=== PATIENT | male | born 1935 | race Caucasian/White ===

== ENCOUNTER 2016-11-14 19:48 | Emergency (ER) | payer OTHER ==
[2016-11-14 19:58] VITALS: BP 182/80; PULSE 81; TEMP 97.9; BMI 26.2
--- NOTE | 2016-11-14 21:24 | PDOC ---
History of Present Illness - General Chief Complaint: Nasal Bleeding Stated Complaint: NASAL BLEEDING Time Seen by Provider: 11/14/16 21:08 History Source: Patient Exam Limitations: No Limitations - History of Present Illness Initial Comments: 11/14/16 21:19 Chief complaint: Nosebleed Patient is an 81-year-old male with a history of hypertension, not on any antiplatelet or anticoagulation who states that he was cleaning the left side of his nose, picked a scab and it started bleeding. He states this usually stops on its own but he was having some issues so he came to the ER. Feels well , no other complaints or issues. Not bleeding now GENERAL/CONSTITUTIONAL: No fever, weakness. dizziness HEAD, EYES, EARS, NOSE AND THROAT: No change in vision. No ear pain or discharge. No sore throat. + Nosebleed CARDIOVASCULAR: No chest pain RESPIRATORY: No shortness of breath or cough GASTROINTESTINAL: No pain, nausea, vomiting, diarrhea or constipation GENITOURINARY: No dysuria MUSCULOSKELETAL: No neck or back pain SKIN: No rash NEUROLOGIC: No headache, vertigo, loss of consciousness, or loss of sensation. GENERAL: The patient is awake, alert, and fully oriented, in no acute distress. HEAD: Normal with no signs of trauma. EYES: Pupils equal, round and reactive to light, sclera anicteric, conjunctiva clear. ENT: pharynx: no erythema, no exudate, uvula midline, nares right, normal exam, left with no active bleeding or site of injury NECK: supple CHEST: clear, nontender, rr EXTREMITIes: Full range of motion, tender NEUROLOGICAL: Normal speech, normal gait. SKIN: Warm, Dry Past History - Past Medical History Allergies/Adverse Reactions: Allergies Allergy/AdvReac Type Severity Reaction Status Date / Time No Known Allergies Allergy Verified 11/14/16 19:55 Home Medications: Ambulatory Orders Lisinopril [Prinivil -] 40 mg PO DAILY 03/25/13 Metoprolol Tartrate [Lopressor -] 100 mg PO BID 03/25/13 Anemia: No Asthma: No Cancer: Yes ([facility] 2008) Cardiac Disorders: No CVA: No CHF: No Dementia: No Diabetes: No GI Disorders: No Disorders: No HTN: Yes Hypercholesterolemia: No Liver Disease: No Suicide Attempt (Hx): Yes Seizures: No Thyroid Disease: No - Surgical History Abdominal Surgery: Yes ([facility] [place] 2009) Appendectomy: No Cardiac Surgery: No Cholecystectomy: No Lung Surgery: No Neurologic Surgery: No Orthopedic Surgery: No - Psycho/Social/Smoking Cessation Hx Anxiety: No Suicidal Ideation: No Smoking Status: No Smoking History: Never smoked Have you smoked in the past 12 months: No Number of Cigarettes Smoked Daily: 0 If you are a former smoker, when did you quit?: 1967 Information on smoking cessation initiated: No Hx Alcohol Use: No Drug/Substance Use Hx: No Substance Use Type: None Hx Substance Use Treatment: No *Physical Exam - Vital Signs Last Vital Signs Temp Pulse Resp BP Pulse Ox 97.9 F 81 18 182/80 99 11/14/16 19:55 11/14/16 19:55 11/14/16 19:55 11/14/16 19:55 11/14/16 19:55 *DC/Admit/Observation/Transfer Diagnosis at time of Disposition: Epistaxis - Discharge Dispostion Disposition: HOME Condition at time of disposition: Stable Admit: No - Referrals Referrals: Radha Mcguire MD [Staff Physician] - - Patient Instructions Printed Discharge Instructions: DI for Nosebleed Additional Instructions: Do not put anything in your nose, and do not pick at the scabs, this will cause nose to bleed If it starts bleeding again, below it once, put your head forward and pinch nose for a good 20-30 minutes, do not put the tissue inside nose, once you take this out it will start to bleed again I recommended that you see an ENT doctor if this continues to be a problem, you want to see your own doctor so follow-up with your doctor this week. Return to the ER if worse
== END 2016-11-14 21:27 | disposition home or self-care (01) ==
LOC: JERFT 19:48
DX: R04.0 Epistaxis (principal); I10 Essential (primary) hypertension
CPT/HCPCS: 99281-25

== ENCOUNTER 2020-12-07 19:05 | Emergency (ER) | payer OTHER ==
[2020-12-07 19:10] VITALS: BP 142/89; PULSE 68; TEMP 98.2; BMI 20.5
== END 2020-12-07 20:33 | disposition home or self-care (01) ==
LOC: JER 19:05
DX: M27.61 Osseointegration failure of dental implant (principal)
CPT/HCPCS: 99281-25

== ENCOUNTER 2020-12-09 06:04 | Emergency (ER) | payer OTHER ==
[2020-12-09 06:17] VITALS: TEMP 98.6; BMI 19.1
[2020-12-09 09:50] VITALS: BP 148/82; PULSE 78
== END 2020-12-09 09:51 | disposition home or self-care (01) ==
LOC: JER 06:04
DX: L76.22 Postprocedural hemorrhage of skin and subcutaneous tissue following other procedure (principal)
CPT/HCPCS: 99281-25

== ENCOUNTER 2020-12-09 12:22 | Emergency (ER) | payer OTHER ==
[2020-12-09 12:27] VITALS: BP 188/65; PULSE 75; TEMP 97.8; BMI 19.1
== END 2020-12-09 12:47 | disposition home or self-care (01) ==
LOC: JERFT 12:22
DX: L76.22 Postprocedural hemorrhage of skin and subcutaneous tissue following other procedure (principal)
CPT/HCPCS: 99281-25

== ENCOUNTER 2021-01-17 16:32 | Emergency (ER) | payer OTHER ==
[2021-01-17 16:43] VITALS: PULSE 70; TEMP 98; BMI 19.1
[2021-01-17] MEDS ORDERED: ACETAMINOPHEN 1000 MG/100 ML VIAL (NON FORMULARY) IVPB ONE (18:10)
[2021-01-17] MEDS ORDERED: MAG HYDROX/AL HYDROX/SIMETH 30 ML UNIT-DOSE CUP PO ONE (18:10)
[2021-01-17] MEDS ORDERED: MAG HYDROX/AL HYDROX/SIMETH 30 ML UNIT-DOSE CUP ONE ×2 (18:19→18:20)
[2021-01-17] MEDS ORDERED: ACETAMINOPHEN INJECTION 100 ML IVPB ONE (18:19)
[2021-01-17 18:24] VITALS: BP 175/85
[2021-01-17 19:27] LABS: BASO % 0.8 % (0-2.0); EOS % 0.5 % (0-4.5); HEMATOCRIT 33.7 % (35.4-49); HEMOGLOBIN 11.2 GM/dL (11.7-16.9); LYMPH % 8.1 % (8-40); MCH 25.4 pg (25.7-33.7); MCHC 33.3 g/dl (32.0-35.9); MEAN CELL VOLUME 76.2 fl (80-96); MONO % 6.6 % (3.8-10.2); PLATELET COUNT 215 10^3/uL (134-434); RBC 4.42 M/mm3 (4.00-5.60); RDW 16.2 % (11.9-15.9); WHITE BLOOD COUNT 7.5 K/mm3 (4.0-10.0)
[2021-01-17 19:44] LABS: CHLORIDE 101 mmol/L (98-107); SODIUM 138 mmol/L (136-145)
[2021-01-17 19:47] LABS: ALBUMIN 3.6 g/dl (3.4-5.0); ANION GAP 5 MMOL/L (8-16); BLOOD UREA NITROGEN 22.4 mg/dL (7-18); CALCIUM 8.3 mg/dL (8.5-10.1); CO2 31 mmol/L (21-32); GLUCOSE,RANDOM 95 mg/dL (74-106)
[2021-01-17 19:50] LABS: CREATININE 1.1 mg/dL (0.55-1.3); SGOT/AST 18 U/L (15-37); SGPT/ALT 16 U/L (13-61)
[2021-01-17 19:52] LABS: BILIRUBIN,TOTAL 0.4 mg/dL (0.2-1); TOT PROT 7.5 g/dl (6.4-8.2)
[2021-01-17 19:53] LABS: ALK PHOS 65 U/L (45-117)
== END 2021-01-17 21:41 | disposition home or self-care (01) ==
LOC: JER 16:32
PROC: 3E0333Z Introduction of Anti-inflammatory into Peripheral Vein, Percutaneous Approach (ICD-10-PCS; principal; 2021-01-17)
DX: R14.0 Abdominal distension (gaseous) (principal); M25.511 Pain in right shoulder; M25.512 Pain in left shoulder
CPT/HCPCS: 36415; 71045-TC-FY; 80053; 82550; 84484; 85025; 93005; 93010; 99285-25; J0131

== ENCOUNTER 2021-02-20 17:58 | Inpatient (IN) | payer OTHER ==
[2021-02-20 21:15] LABS: BASO % 2.2 % (0-2.0); EOS % 0.6 % (0-4.5); HEMATOCRIT 30.3 % (35.4-49); HEMOGLOBIN 10.1 GM/dL (11.7-16.9); LYMPH % 11.3 % (8-40); MCH 24.4 pg (25.7-33.7); MCHC 33.4 g/dl (32.0-35.9); MEAN PLT VOLUME 6.8 fl (7.5-11.1); MONO % 7.2 % (3.8-10.2); NEUT % 78.7 % (42.8-82.8); PLATELET COUNT 328 10^3/uL (134-434); RBC 4.15 M/mm3 (4.00-5.60); RDW 16.2 % (11.9-15.9); WHITE BLOOD COUNT 6.8 K/mm3 (4.0-10.0)
[2021-02-20 21:32] LABS: CHLORIDE 102 mmol/L (98-107); SODIUM 135 mmol/L (136-145)
[2021-02-20 21:34] LABS: ANION GAP 6 MMOL/L (8-16); CALCIUM 8.3 mg/dL (8.5-10.1); CO2 26 mmol/L (21-32); GLUCOSE,RANDOM 74 mg/dL (74-106)
[2021-02-20 21:35] LABS: BLOOD UREA NITROGEN 17.9 mg/dL (7-18)
[2021-02-20 21:37] LABS: SGPT/ALT 11 U/L (13-61)
[2021-02-20 21:38] LABS: SGOT/AST 20 U/L (15-37)
[2021-02-20 21:39] LABS: BILIRUBIN,TOTAL 0.4 mg/dL (0.2-1); TOT PROT 7.3 g/dl (6.4-8.2)
[2021-02-20 21:40] LABS: ALK PHOS 66 U/L (45-117)
[2021-02-21] MEDS ORDERED: FUROSEMIDE 40 MG/4 ML INJECTABLE VIAL IVPUSH ONE (01:10)
[2021-02-21] MEDS ORDERED: hydrALAZINE HCL 50 MG TABLET (FP) PO ONE (01:28)
[2021-02-21] MEDS ORDERED: FUROSEMIDE 40 MG/4 ML INJECTABLE VIAL ONE (01:46)
[2021-02-21] MEDS ORDERED: hydrALAZINE HCL 25 MG TABLET (FP) ONE (01:46)
[2021-02-21 09:48] LABS: EPI CELLS 4 /uL (0-25.1); HYALINE CASTS 0 /uL (0-3.1); PH,URINE 7.5 (5.0-8.0); URINE APPEARANCE CLEAR; URINE BACTERIA 2 /uL (0-1359); URINE BILIRUBIN NEGATIVE (NEGATIVE); URINE COLOR YELLOW; URINE GLUCOSE (UA) NEGATIVE (NEGATIVE); URINE KETONE 1+ (NEGATIVE); URINE LEUK ESTERASE NEGATIVE (NEGATIVE); URINE NITRITE NEGATIVE (NEGATIVE); URINE PROTEIN 1+ (NEGATIVE); URINE RBC 37 /uL (0-23.9); URINE WBC 3 /uL (0-25.8)
[2021-02-21 17:39] VITALS: BMI 21.4
[2021-02-21] MEDS: METOPROLOL TARTRATE 50 MG TABLET (FP) PO SCH (21:46)
[2021-02-22 09:38] LABS: BASO % 1.1 % (0-2.0); EOS % 1.1 % (0-4.5); HEMATOCRIT 31.5 % (35.4-49); HEMOGLOBIN 10.4 GM/dL (11.7-16.9); LYMPH % 11.5 % (8-40); MCHC 32.9 g/dl (32.0-35.9); MEAN CELL VOLUME 72.7 fl (80-96); MEAN PLT VOLUME 7.1 fl (7.5-11.1); MONO % 8.3 % (3.8-10.2); PLATELET COUNT 338 10^3/uL (134-434); RBC 4.34 M/mm3 (4.00-5.60); RDW 15.8 % (11.9-15.9); WHITE BLOOD COUNT 6.3 K/mm3 (4.0-10.0)
[2021-02-22] MEDS: FUROSEMIDE 40 MG/4 ML INJECTABLE VIAL IVPUSH SCH (09:55)
[2021-02-22] MEDS: METOPROLOL TARTRATE 50 MG TABLET (FP) PO SCH ×2 (09:55→21:27)
[2021-02-22] MEDS: LISINOPRIL 20 MG TABLET PO SCH (09:55)
[2021-02-22 10:17] LABS: CALCIUM 8.5 mg/dL (8.5-10.1)
[2021-02-22 10:18] LABS: BLOOD UREA NITROGEN 21.5 mg/dL (7-18)
[2021-02-22 10:20] LABS: BILIRUBIN,TOTAL 0.5 mg/dL (0.2-1); TOT PROT 7.1 g/dl (6.4-8.2)
[2021-02-23 10:10] LABS: BLOOD UREA NITROGEN 28.1 mg/dL (7-18)
[2021-02-23 10:11] LABS: CREATININE 1.1 mg/dL (0.55-1.3)
[2021-02-23 10:14] LABS: CALCIUM 8.1 mg/dL (8.5-10.1)
[2021-02-23] MEDS: LISINOPRIL 20 MG TABLET PO SCH (10:37)
[2021-02-23] MEDS: FUROSEMIDE 40 MG/4 ML INJECTABLE VIAL IVPUSH SCH (10:37)
[2021-02-23] MEDS: METOPROLOL TARTRATE 50 MG TABLET (FP) PO SCH ×2 (10:37→21:13)
[2021-02-23] MEDS: HEPARIN NA (PORCINE) 5,000 UNITS/ML 1ML VIAL SQ SCH (21:12)
[2021-02-24] MEDS: HEPARIN NA (PORCINE) 5,000 UNITS/ML 1ML VIAL SQ SCH ×2 (09:55→21:23)
[2021-02-24] MEDS: FUROSEMIDE 40 MG/4 ML INJECTABLE VIAL IVPUSH SCH (09:55)
[2021-02-24] MEDS: LISINOPRIL 20 MG TABLET PO SCH (09:55)
[2021-02-24] MEDS: METOPROLOL TARTRATE 50 MG TABLET (FP) PO SCH ×2 (09:55→21:23)
[2021-02-24 10:29] LABS: CALCIUM 8.3 mg/dL (8.5-10.1)
[2021-02-24 10:30] LABS: BLOOD UREA NITROGEN 35.2 mg/dL (7-18)
[2021-02-24 10:39] LABS: CREATININE 1.4 mg/dL (0.55-1.3)
[2021-02-25 06:43] VITALS: BP 145/79; PULSE 71; TEMP 97.4
[2021-02-25 08:47] LABS: BLOOD UREA NITROGEN 39.8 mg/dL (7-18)
[2021-02-25 08:50] LABS: CREATININE 1.2 mg/dL (0.55-1.3)
[2021-02-25] MEDS: HEPARIN NA (PORCINE) 5,000 UNITS/ML 1ML VIAL SQ SCH (10:32)
[2021-02-25] MEDS: LISINOPRIL 20 MG TABLET PO SCH (10:32)
[2021-02-25] MEDS: METOPROLOL TARTRATE 50 MG TABLET (FP) PO SCH (10:32)
[2021-02-25] MEDS: FUROSEMIDE 40 MG/4 ML INJECTABLE VIAL IVPUSH SCH (10:33)
== END 2021-02-25 14:13 | disposition home or self-care (01) | DRG 292 ==
LOC: JER 17:58 → JERBED 02-21 01:50 → J8W 02-21 16:39
PROVIDERS: ADMIT Internal Medicine; ATTEND Internal Medicine
DX: I11.0 Hypertensive heart disease with heart failure (principal); I31.3 Pericardial effusion (noninflammatory); R64 Cachexia; R62.7 Adult failure to thrive; Z85.038 Personal history of other malignant neoplasm of large intestine; R16.1 Splenomegaly, not elsewhere classified; R16.0 Hepatomegaly, not elsewhere classified; I50.33 Acute on chronic diastolic (congestive) heart failure; Z68.21 Body mass index [BMI] 21.0-21.9, adult
CPT/HCPCS: 36415; 71045-TC-FY; 74177-TC; 80048; 80053; 81003; 84484; 85025; 87081; 87086; 93005; 93010; 93306-TC; 97116-GP; 97161-GP; 99285-25; C9803; J1644; U0003; U0005

== ENCOUNTER 2021-04-05 10:55 | Inpatient (IN) | payer OTHER ==
[2021-04-05] MEDS ORDERED: FUROSEMIDE 40 MG/4 ML INJECTABLE VIAL IVPUSH ONE (15:34)
[2021-04-05] MEDS ORDERED: FUROSEMIDE 40 MG/4 ML INJECTABLE VIAL ONE (16:27)
[2021-04-05 16:43] LABS: BASO % 1.3 % (0-2.0); EOS % 2.1 % (0-4.5); HEMATOCRIT 34.7 % (35.4-49); HEMOGLOBIN 11.5 GM/dL (11.7-16.9); LYMPH % 13.3 % (8-40); MCH 24.1 pg (25.7-33.7); MCHC 33.1 g/dl (32.0-35.9); MEAN CELL VOLUME 72.9 fl (80-96); MEAN PLT VOLUME 7.1 fl (7.5-11.1); MONO % 5.9 % (3.8-10.2); NEUT % 77.4 % (42.8-82.8); PLATELET COUNT 263 10^3/uL (134-434); RBC 4.76 M/mm3 (4.00-5.60); RDW 18.8 % (11.9-15.9); WHITE BLOOD COUNT 6.8 K/mm3 (4.0-10.0)
[2021-04-05] MEDS ORDERED: LIDOCAINE 5% TOPICAL PATCH TP ONE (17:04)
[2021-04-05] MEDS ORDERED: ACETAMINOPHEN 325 MG TABLET (FP) PO ONE (17:05)
[2021-04-05] MEDS ORDERED: LIDOCAINE 5% TOPICAL PATCH ONE (17:16)
[2021-04-05] MEDS ORDERED: ACETAMINOPHEN 325 MG TABLET (FP) ONE (17:16)
[2021-04-05 17:22] LABS: CHLORIDE 102 mmol/L (98-107); SODIUM 140 mmol/L (136-145)
[2021-04-05 17:24] LABS: ALBUMIN 3.2 g/dl (3.4-5.0); CALCIUM 8.7 mg/dL (8.5-10.1)
[2021-04-05 17:25] LABS: ANION GAP 9 MMOL/L (8-16); BLOOD UREA NITROGEN 26.9 mg/dL (7-18); CO2 29 mmol/L (21-32); GLUCOSE,RANDOM 89 mg/dL (74-106)
[2021-04-05 17:28] LABS: CREATININE 1.3 mg/dL (0.55-1.3); SGOT/AST 31 U/L (15-37); SGPT/ALT 13 U/L (13-61)
[2021-04-05 17:29] LABS: BILIRUBIN,TOTAL 0.8 mg/dL (0.2-1); TOT PROT 8.7 g/dl (6.4-8.2)
[2021-04-05 17:30] LABS: ALK PHOS 76 U/L (45-117)
[2021-04-05] MEDS ORDERED: KETOROLAC TROMETHAMINE 30 MG/1 ML VIAL IM PRN (17:36)
[2021-04-05] MEDS ORDERED: LIDOCAINE PATCH REMOVAL MC SCH (22:00)
[2021-04-05] MEDS: HEPARIN NA (PORCINE) 5,000 UNITS/ML 1ML VIAL SQ SCH (23:16)
[2021-04-06] MEDS: ACETAMINOPHEN 325 MG TABLET (FP) PO PRN ×2 (02:09→19:57)
[2021-04-06 05:48] VITALS: BMI 19.8
[2021-04-06] MEDS: HEPARIN NA (PORCINE) 5,000 UNITS/ML 1ML VIAL SQ SCH ×2 (10:00→21:42)
[2021-04-06] MEDS: LIDOCAINE 5% TOPICAL PATCH TP SCH (10:00)
[2021-04-06] MEDS ORDERED: FUROSEMIDE 40 MG/4 ML INJECTABLE VIAL IVPUSH SCH (10:00)
[2021-04-06] MEDS ORDERED: LIDOCAINE PATCH REMOVAL MC SCH (22:00)
[2021-04-07] MEDS: LIDOCAINE 5% TOPICAL PATCH TP SCH (09:18)
[2021-04-07] MEDS: HEPARIN NA (PORCINE) 5,000 UNITS/ML 1ML VIAL SQ SCH (09:18)
[2021-04-07] MEDS ORDERED: FUROSEMIDE 40 MG TABLET (FP) PO SCH (10:00)
[2021-04-07 11:47] VITALS: BP 126/78; PULSE 90; TEMP 98
== END 2021-04-07 15:08 | disposition home or self-care (01) | DRG 552 ==
LOC: JER 10:55 → JERBED 16:46 → J6S 21:00
PROVIDERS: ADMIT Internal Medicine; ATTEND Internal Medicine
DX: S22.030A Wedge compression fracture of third thoracic vertebra, initial encounter for closed fracture (principal); J90 Pleural effusion, not elsewhere classified; R26.2 Difficulty in walking, not elsewhere classified; M54.50 Low back pain, unspecified; I10 Essential (primary) hypertension; Z85.038 Personal history of other malignant neoplasm of large intestine; W17.89XA Other fall from one level to another, initial encounter; Y92.098 Other place in other non-institutional residence as the place of occurrence of the external cause
CPT/HCPCS: 36415; 71045-TC-FY; 72100-TC-FY; 72128-TC; 73523-TC-FY; 80053; 82550; 83880; 84484; 85025; 93005; 93010; 97116-GP; 97162-GP; 99285-25; C9803; J1644; U0003; U0005

== ENCOUNTER 2021-05-26 11:03 | Inpatient (IN) | payer OTHER ==
[2021-05-26] MEDS ORDERED: IBUPROFEN 600 MG TABLET (FP) PO ONE (12:12)
[2021-05-26] MEDS ORDERED: IBUPROFEN 400 MG TABLET (FP) PO ONE (12:25)
[2021-05-26] MEDS ORDERED: CYCLOBENZAPRINE HCL 10 MG TABLET (FP) PO ONE (13:40)
[2021-05-26] MEDS ORDERED: CYCLOBENZAPRINE HCL 10 MG TABLET (FP) ONE (13:54)
[2021-05-26] MEDS ORDERED: ACETAMINOPHEN 1000 MG/100 ML VIAL IVPB PRN (16:13)
[2021-05-26 18:07] LABS: BASO % 1.5 % (0-2.0); EOS % 1.2 % (0-4.5); HEMATOCRIT 28.2 % (35.4-49); HEMOGLOBIN 9.4 GM/dL (11.7-16.9); MCHC 33.5 g/dl (32.0-35.9); MEAN CELL VOLUME 74.6 fl (80-96); MEAN PLT VOLUME 7.2 fl (7.5-11.1); MONO % 7.5 % (3.8-10.2); NEUT % 71.8 % (42.8-82.8); PLATELET COUNT 343 10^3/uL (134-434); RBC 3.78 M/mm3 (4.00-5.60); RDW 17.7 % (11.9-15.9); WHITE BLOOD COUNT 4.9 K/mm3 (4.0-10.0)
[2021-05-26 18:10] LABS: URINE APPEARANCE CLEAR; URINE BILIRUBIN NEGATIVE (NEGATIVE); URINE COLOR YELLOW; URINE GLUCOSE (UA) NEGATIVE (NEGATIVE); URINE KETONE NEGATIVE (NEGATIVE); URINE LEUK ESTERASE NEGATIVE (NEGATIVE); URINE NITRITE NEGATIVE (NEGATIVE); URINE PROTEIN TRACE (NEGATIVE)
[2021-05-26 18:23] LABS: ALBUMIN 2.5 g/dl (3.4-5.0); BLOOD UREA NITROGEN 22.7 mg/dL (7-18); CALCIUM 8.4 mg/dL (8.5-10.1)
[2021-05-26 18:27] LABS: CREATININE 1.2 mg/dL (0.55-1.3)
[2021-05-26 18:28] LABS: BILIRUBIN,TOTAL 0.4 mg/dL (0.2-1); TOT PROT 6.9 g/dl (6.4-8.2)
[2021-05-26] MEDS: LIDOCAINE PATCH REMOVAL MC SCH (22:58)
[2021-05-26] MEDS: METOPROLOL TARTRATE 50 MG TABLET (FP) PO SCH (22:58)
[2021-05-26 23:25] VITALS: BMI 20.2
[2021-05-27] MEDS: LIDOCAINE 5% TOPICAL PATCH TP SCH ×3 (10:25→10:26)
[2021-05-27] MEDS: METOPROLOL TARTRATE 50 MG TABLET (FP) PO SCH ×2 (10:25→22:47)
[2021-05-27] MEDS: FERROUS SO4 325 MG TABLET (FP) PO SCH ×2 (13:56→22:47)
[2021-05-27] MEDS: BACITRACIN 15 GM TUBE TOPICAL OINTMENT TP SCH (13:56)
[2021-05-27] MEDS ORDERED: FUROSEMIDE 20 MG TABLET (FP) PO ONE (14:52)
[2021-05-27] MEDS: LIDOCAINE PATCH REMOVAL MC SCH (23:04)
[2021-05-28 08:37] LABS: BASO % 1.3 % (0-2.0); EOS % 1.7 % (0-4.5); HEMATOCRIT 32.5 % (35.4-49); HEMOGLOBIN 10.8 GM/dL (11.7-16.9); LYMPH % 20.7 % (8-40); MCHC 33.3 g/dl (32.0-35.9); MONO % 6.9 % (3.8-10.2); NEUT % 69.4 % (42.8-82.8); PLATELET COUNT 435 10^3/uL (134-434); RBC 4.33 M/mm3 (4.00-5.60); RDW 17.9 % (11.9-15.9); WHITE BLOOD COUNT 7.2 K/mm3 (4.0-10.0)
[2021-05-28 09:05] LABS: BLOOD UREA NITROGEN 23.7 mg/dL (7-18)
[2021-05-28 09:06] LABS: ALBUMIN 2.6 g/dl (3.4-5.0); CALCIUM 8.6 mg/dL (8.5-10.1)
[2021-05-28 09:07] LABS: CREATININE 1.2 mg/dL (0.55-1.3)
[2021-05-28 09:08] LABS: BILIRUBIN,TOTAL 0.6 mg/dL (0.2-1); TOT PROT 7.2 g/dl (6.4-8.2)
[2021-05-28] MEDS: METOPROLOL TARTRATE 50 MG TABLET (FP) PO SCH ×2 (10:40→21:26)
[2021-05-28] MEDS: FERROUS SO4 325 MG TABLET (FP) PO SCH ×2 (10:40→21:26)
[2021-05-28] MEDS: FUROSEMIDE 20 MG TABLET (FP) PO SCH (10:40)
[2021-05-28] MEDS: ENOXAPARIN NA (PORCINE) 40 MG/0.4 ML DISP.SYRIN SQ SCH (10:41)
[2021-05-28] MEDS: BACITRACIN 15 GM TUBE TOPICAL OINTMENT TP SCH (10:41)
[2021-05-28] MEDS: LIDOCAINE 5% TOPICAL PATCH TP SCH (10:41)
[2021-05-28] MEDS: LIDOCAINE PATCH REMOVAL MC SCH (21:26)
[2021-05-29] MEDS: LIDOCAINE 5% TOPICAL PATCH TP SCH (09:28)
[2021-05-29] MEDS: BACITRACIN 15 GM TUBE TOPICAL OINTMENT TP SCH (09:28)
[2021-05-29] MEDS: FERROUS SO4 325 MG TABLET (FP) PO SCH ×2 (09:29→22:04)
[2021-05-29] MEDS: FUROSEMIDE 20 MG TABLET (FP) PO SCH (09:29)
[2021-05-29] MEDS: ENOXAPARIN NA (PORCINE) 40 MG/0.4 ML DISP.SYRIN SQ SCH (09:29)
[2021-05-29] MEDS: METOPROLOL TARTRATE 50 MG TABLET (FP) PO SCH ×2 (09:29→22:04)
[2021-05-29] MEDS: LIDOCAINE PATCH REMOVAL MC SCH (22:04)
[2021-05-30] MEDS: ENOXAPARIN NA (PORCINE) 40 MG/0.4 ML DISP.SYRIN SQ SCH (09:38)
[2021-05-30] MEDS: LIDOCAINE 5% TOPICAL PATCH TP SCH (09:38)
[2021-05-30] MEDS: FUROSEMIDE 20 MG TABLET (FP) PO SCH (09:38)
[2021-05-30] MEDS: FERROUS SO4 325 MG TABLET (FP) PO SCH ×2 (09:38→22:26)
[2021-05-30] MEDS: METOPROLOL TARTRATE 50 MG TABLET (FP) PO SCH ×2 (09:38→22:26)
[2021-05-30] MEDS: BACITRACIN 15 GM TUBE TOPICAL OINTMENT TP SCH (09:39)
[2021-05-30] MEDS ORDERED: IRON SUCROSE INJECTION 200 MG in SODIUM CHLORIDE 90 ML IVPB ONE (18:58)
[2021-05-30] MEDS: LIDOCAINE PATCH REMOVAL MC SCH (22:26)
[2021-05-31 07:20] LABS: EOS % 3.3 % (0-4.5); HEMATOCRIT 27.8 % (35.4-49); HEMOGLOBIN 9.3 GM/dL (11.7-16.9); LYMPH % 20.2 % (8-40); MCH 25.2 pg (25.7-33.7); MCHC 33.5 g/dl (32.0-35.9); MEAN CELL VOLUME 75.3 fl (80-96); MONO % 8.7 % (3.8-10.2); NEUT % 65.8 % (42.8-82.8); PLATELET COUNT 308 10^3/uL (134-434); WHITE BLOOD COUNT 4.6 K/mm3 (4.0-10.0)
[2021-05-31 10:21] LABS: ALBUMIN 2.4 g/dl (3.4-5.0); BILIRUBIN,TOTAL 0.3 mg/dL (0.2-1); CALCIUM 8.2 mg/dL (8.5-10.1); CREATININE 1.1 mg/dL (0.55-1.3); TOT PROT 6.5 g/dl (6.4-8.2)
[2021-05-31] MEDS: LIDOCAINE 5% TOPICAL PATCH TP SCH (11:18)
[2021-05-31] MEDS: ENOXAPARIN NA (PORCINE) 40 MG/0.4 ML DISP.SYRIN SQ SCH (11:18)
[2021-05-31] MEDS: METOPROLOL TARTRATE 50 MG TABLET (FP) PO SCH ×2 (11:19→22:01)
[2021-05-31] MEDS: FERROUS SO4 325 MG TABLET (FP) PO SCH ×2 (11:19→22:01)
[2021-05-31] MEDS: FUROSEMIDE 20 MG TABLET (FP) PO SCH (11:19)
[2021-05-31] MEDS: BACITRACIN 15 GM TUBE TOPICAL OINTMENT TP SCH (11:20)
[2021-05-31] MEDS: LIDOCAINE PATCH REMOVAL MC SCH (22:02)
[2021-06-01] MEDS: METOPROLOL TARTRATE 50 MG TABLET (FP) PO SCH ×2 (10:56→23:07)
[2021-06-01] MEDS: FERROUS SO4 325 MG TABLET (FP) PO SCH ×2 (10:56→23:07)
[2021-06-01] MEDS: FUROSEMIDE 20 MG TABLET (FP) PO SCH (10:56)
[2021-06-01] MEDS: ENOXAPARIN NA (PORCINE) 40 MG/0.4 ML DISP.SYRIN SQ SCH (10:58)
[2021-06-01] MEDS: LIDOCAINE 5% TOPICAL PATCH TP SCH (11:17)
[2021-06-01] MEDS: BACITRACIN 15 GM TUBE TOPICAL OINTMENT TP SCH (11:17)
[2021-06-01] MEDS: LIDOCAINE PATCH REMOVAL MC SCH (23:07)
[2021-06-02 09:30] VITALS: TEMP 97.7
[2021-06-02] MEDS: METOPROLOL TARTRATE 50 MG TABLET (FP) PO SCH (10:44)
[2021-06-02] MEDS: FERROUS SO4 325 MG TABLET (FP) PO SCH (10:45)
[2021-06-02] MEDS: ENOXAPARIN NA (PORCINE) 40 MG/0.4 ML DISP.SYRIN SQ SCH (10:45)
[2021-06-02] MEDS: FUROSEMIDE 20 MG TABLET (FP) PO SCH (10:45)
[2021-06-02] MEDS: LIDOCAINE 5% TOPICAL PATCH TP SCH (10:45)
[2021-06-02 15:31] VITALS: BP 141/75; PULSE 69
== END 2021-06-02 16:27 | disposition home or self-care (01) | DRG 543 ==
LOC: JER 11:03 → JERBED 16:39 → J7W 20:22
PROVIDERS: ADMIT Internal Medicine; ATTEND Internal Medicine
DX: M80.08XA Age-related osteoporosis with current pathological fracture, vertebra(e), initial encounter for fracture (principal); S22.030A Wedge compression fracture of third thoracic vertebra, initial encounter for closed fracture; M48.54XA Collapsed vertebra, not elsewhere classified, thoracic region, initial encounter for fracture; I10 Essential (primary) hypertension; W19.XXXA Unspecified fall, initial encounter; Y93.89 Activity, other specified; Y92.89 Other specified places as the place of occurrence of the external cause; Y99.9 Unspecified external cause status
CPT/HCPCS: 36415; 71045-TC-FY; 71250-TC; 72128-TC; 72131-TC; 74176-TC; 78306-TC; 80053; 81003; 82378; 82728; 83540; 83550; 84153; 85025; 87086; 93005; 93010; 97116-GP; 97161-GP; 99285-25; A9503; C9803; J1756; U0003; U0005

== ENCOUNTER 2021-10-05 19:00 | Emergency (ER) | payer OTHER ==
[2021-10-05 19:30] VITALS: BP 143/96; PULSE 89; TEMP 98; BMI 19.5
== END 2021-10-05 21:07 | disposition home or self-care (01) ==
LOC: JERFT 19:00
DX: K91.840 Postprocedural hemorrhage of a digestive system organ or structure following a digestive system procedure (principal)
CPT/HCPCS: 99282-25

== ENCOUNTER 2021-10-06 10:11 | Emergency (ER) | payer OTHER ==
[2021-10-06 10:24] VITALS: BP 151/77; PULSE 70; TEMP 98.2; BMI 19.5
[2021-10-06] MEDS ORDERED: SILVER NITRATE 75% APPLIC STCK 1 PKT EACH TP ONE (10:38)
[2021-10-06] MEDS ORDERED: OXYMETAZOLINE 0.05% NASAL SOLUTION 15 ML BOTTLE NS ONE (10:39)
[2021-10-06] MEDS ORDERED: SILVER NITRATE 75% APPLIC STCK 1 PKT EACH ONE (12:07)
[2021-10-06 12:20] LABS: HEMOGLOBIN 9.8 GM/dL (11.7-16.9); MCH 24.1 pg (25.7-33.7); MCHC 32.7 g/dl (32.0-35.9); MEAN CELL VOLUME 73.8 fl (80-96); MEAN PLT VOLUME 6.5 fl (7.5-11.1); PLATELET COUNT 287 10^3/uL (134-434); RBC 4.06 M/mm3 (4.00-5.60); RDW 17.6 % (11.9-15.9); WHITE BLOOD COUNT 4.6 K/mm3 (4.0-10.0)
== END 2021-10-06 13:10 | disposition home or self-care (01) ==
LOC: JER 10:11
DX: R04.0 Epistaxis (principal)
CPT/HCPCS: 36415; 85027; 99283-25